=== PATIENT | female | born 2000 | race Caucasian/White ===

== ENCOUNTER 2020-11-13 09:44 | Emergency (ER) | payer OTHER, SELFPAY ==
--- NOTE | ~2020-11-13 | CT_ITS ---
EXAMINATION: CTA brain carotid DATE: 11/13/2020 12:00 INDICATION: Headache and dizziness. TECHNIQUE: Computed tomographic angiography (CTA) of the head was performed without and with 100 mL O mnipaque-350 intravenous contrast. CTA of the neck was performed with intravenous contrast. Automated exposure control and iterative reconstruction technique were employed. The dose-length product was 1 672.79 mGy-cm. Maximum intensity projection and volume rendered 3D-reconstructions were created by carola hall technologist on a separate workstation. COMPARISON: None. FINDINGS: HEAD CTA: There is no intracranial hemorrhage, acute infarction, or abnormal intracranial mass lesion . The ventricles are normal in size. There is mild mucosal thickening in sphenoid sinus. The mastoid air cells are normal. The orbits are normal. The vertebral arteries are codominant. There is no signi ficant stenosis of basilar artery or the posterior cerebral arteries. There is no significant stenosi s of the intracranial internal carotid arteries or anterior or middle cerebral arteries. Anterior com municating artery is normal. The posterior communicating arteries are normal. There is no aneurysm. NECK CTA: There are no pathologically enlarged lymph nodes. There is no significant stenosis of the v ertebral arteries. There is no visible plaque in the internal carotid arteries. There is 0% stenosis of the proximal right internal carotid artery relative to normal distal artery lumen diameter (NASCET criteria). There is 0% stenosis of the proximal left internal carotid artery relative to normal dist al artery lumen diameter. There is mild cervical spondylosis. IMPRESSION: 1. Normal brain. No aneurysm or significant intracranial arterial stenosis. 2. 0% stenosis of the proximal internal carotid arteries relative to normal distal artery lumen diame ters (NASCET criteria). Reviewed, dictated and finalized at location A. ATION CLERK IMPRESSION: 1. Normal brain. No aneurysm or significant intracranial arterial stenosis. 2. 0% stenosis of the proximal internal carotid arteries relative to normal dis buster artery lumen diameters (NASCET criteria).
--- NOTE | ~2020-11-13 | XR_ITS ---
XR chest 1V portable 11/13/2020 13:35 Indication: Chest pain. Headache. Body aches. Procedure: AP portable chest Comparison: No prior studies for comparison. Findings: Heart size normal. No focal air space disease, pulmonary edema, pleural effusion or suspect ed pneumothorax. No acute osseous abnormality. Impression: 1: No acute cardiopulmonary disease. Reviewed, dictated and finalized at location A. S PRESSER Impression: 1: No acute cardiopulmonary disease.
[2020-11-13 10:05] VITALS: BP 127/82; PULSE 99; RESP 20; TEMP 36.9; O2SAT 100
[2020-11-13 11:03] LABS: Basophils Absolute Auto 0.1 K/mm3 (0.0-0.1); Basophils Percent Auto 0.5 % (0.2-1.2); Eosinophils Absolute Auto 0.3 K/mm3 (0-0.3); Hematocrit 39.4 % (37.0-47.0); Hemoglobin 12.9 g/dL (12.0-15.0); Immature Granulocyte Absolute 0.09 K/mm3 (0.00-0.031); Immature Granulocyte Percent A 0.7 % (0-0.5); Lymphocytes Percent Auto 23.2 % (18.3-44.2); Mean Corpuscular HGB Conc 32.7 g/dl (32-36); Mean Corpuscular Hemoglobin 26.9 pg (26-34); Mean Corpuscular Volume 82.3 fl (80-100); Monocytes Absolute Auto 0.8 K/mm3 (0.1-0.6); Neutrophils Absolute Auto 8.7 K/mm3 (1.3-6.7); Neutrophils Percent Auto 67.6 % (45.5-73.1); Platelet Count Result 330 k/mm3 (150-375); Red Blood Count 4.79 M/mm3 (4.2-5.4); Red Cell Distribution Width 13.7 % (11.5-14.5); White Blood Count 12.9 K/mm3 (4.5-10.0)
[2020-11-13 11:04] LABS: Add Urine Microscopic? NO; Appearance Urine Clear (Clear); Bilirubin Urine Negative (Negative); Blood Urine Negative (Negative); Color Urine Yellow (Yellow); Glucose Urine UA Negative (Negative); Ketones Urine Negative (Negative); Leukocyte Esterase Ur Negative LEU/UL (Negative); Nitrate Urine Negative (Negative); Protein Urine Negative (Negative); Specific Grav Ur 1.015 (1.001-1.035); Urobilinogen Urine Negative mg/dL (<2.0)
[2020-11-13 11:20] LABS: Alanine Aminotransferase 16 U/L (4-35); Albumin Level 3.7 g/dL (3.5-5.1); Alkaline Phosphatase 58 U/L (38-126); Anion Gap 6 mmol/L (8-16); Aspartate Amino Transferase 16 U/L (14-36); Bilirubin,Total 0.9 mg/dL (0.2-1.3); Blood Urea Nitrogen 11 mg/dL (7-17); CRP 1.1 mg/dL (<1.0); Calcium 8.3 mg/dL (8.4-10.2); Carbon Dioxide 27 mmol/L (22-30); Chloride 102 mmol/L (98-107); Estimated CRCL calculation 114 ml/min; Estimated Glomerular Filt Rate > 60; Glucose 93 mg/dL (65-105); Potassium 3.9 mmol/L (3.4-5.0); Sodium 135 mmol/L (137-145)
[2020-11-13] MEDS: SODIUM CHLORIDE 0.9% IV 1,000 ML 999 ML IV CONT (11:30)
[2020-11-13] MEDS: FAMOTIDINE 20 MG/2 ML VIAL IV PUSH (11:32)
[2020-11-13 11:57] VITALS: BP 126/66; PULSE 85; RESP 18; O2SAT 100
[2020-11-13 12:32] LABS: Erythrocyte Sedimentation Rate 52 mm/hr (0-20)
[2020-11-13 12:36] LABS: Free T4 Free Thyroxine Reflex 1.07 ng/dL (0.78-2.19)
--- NOTE | 2020-11-13 13:26 | ED.URI ---
HPI - URI/Sore Throat General Chief Complaint: Upper Respiratory Infection Stated Complaint: body aches, MERCER Time Seen by Provider: 11/13/20 09:47 Source: patient Mode of arrival: ambulatory Limitations: no limitations History of Present Illness HPI Narrative: Patient a 20-year-old female who presents with generalized body aches and fatigue for the last 2 days does note some sinus congestion denies other URI symptoms notes that she has already had Covid but does work in a healthcare facility patient denies vomiting diarrhea urinary or vaginal complaints presents in no distress has not taken anything for her symptoms denies known direct sick contacts Related Data Home Medications Medication Instructions Recorded Confirmed levothyroxine 11/13/20 Allergies Allergy/AdvReac Type Severity Reaction Status Date / Time cephalexin [From Keflex] Allergy Difficulty Verified 11/13/20 10:07 Breathing Review of Systems Review of Systems: All systems reviewed & are unremarkable except as noted in HPI and below PMFSH Past Medical History Medical History (Updated 11/13/20 @ 13:38 by Ludwin Triana PA-C) Hypothyroidism Surgical History Surgical History (Updated 11/13/20 @ 13:27 by Ludwin Triana PA-C) H/O thyroidectomy Social History Social History (Updated 11/13/20 @ 13:27 by Ludwin Triana PA-C) Smoking status: Never smoker Exam Narrative: Exam Narrative: GENERAL: Well-appearing, well-nourished, and in no acute distress. HEAD: Normocephalic, atraumatic. EYES: PERRLA and EOMI. ENT: Nares clear, no rhinorrhea or epistaxis. Mucous membranes moist. Oropharynx without tonsillar hypertrophy exudate or other lesions. Bilateral TMs pearly pascual nonbulging NECK: Supple. No adenopathy or masses. CHEST: Clear to auscultation. No respiratory distress. No wheezes rales or rhonchi HEART: Regular rate and rhythm. No murmur heard. Normal peripheral pulses. ABDOMEN: Soft, mild tenderness in the lower quadrants of the abdomen no rebound or guarding, nondistended EXTREMITIES: Normal range of motion. No edema. SKIN: Warm, dry, no rash. NEURO: No focal deficits. Alert and oriented x3. Cranial nerves II through XII grossly intact PSYCH: Normal mood and affect. Course Course Emergency Course: Patient evaluated in the emergency department no high risk changes in the blood work or imaging will be discharged home for further evaluation by her primary care discussion was made with primary care patient agrees with this plan will be sent home to rest and hydrate with plan follow-up for further evaluation by primary care Consultations Consultation #1: Discussed case with primary care who would like patient to be swabbed for Covid and to follow by phone for results and further evaluation spoke with Dr. De La Rosa Date: 11/13/20 Time: 13:36 Vital Signs Vital signs: Vital Signs Temperature 98.5 F 11/13/20 10:05 Pulse Rate 99 11/13/20 10:05 Respiratory Rate 20 11/13/20 10:05 Blood Pressure 127/82 11/13/20 10:05 Pulse Oximetry 100 11/13/20 10:05 Temperature 98.5 F 11/13/20 10:05 Pulse Rate 85 11/13/20 11:57 Respiratory Rate 18 11/13/20 11:57 Blood Pressure 126/66 11/13/20 11:57 Pulse Oximetry 100 11/13/20 11:57 MDM - URI/Sore Throat MDM Narrative Medical decision making narrative: Patient in the room made aware of case findings treatment plan diagnosis will be discharged home with plan follow-up with primary care no high risk changes in the blood work or imaging afebrile nontoxic-appearing. Lab Data Result diagrams: 11/13/20 10:55 11/13/20 10:55 Labs: Lab Results 11/13/20 11/13/20 11/13/20 Range/Units 10:55 10:55 10:55 WBC 12.9 H (4.5-10.0) K/mm3 RBC 4.79 (4.2-5.4) M/mm3 Hgb 12.9 (12.0-15.0) g/dL Hct 39.4 (37.0-47.0) % MCV 82.3 (80-100) fl MCH 26.9 (26-34) pg MCHC 32.7 (32-36) g/dl RDW 13.7 (11.5-14.5) % P
[2020-11-13 13:57] VITALS: BP 115/66; PULSE 69; RESP 18; O2SAT 100
[2020-11-13 14:32] LABS: Total Triiodothyronine (T3) 1.03 NG/ML (0.97-1.69)
[2020-11-13 23:32] LABS: SARS-CoV-2 RNA PCR Negative
== END 2020-11-13 13:59 | disposition home or self-care (01) ==
PROVIDERS: Emergency Medicine Emergency Medical Services; Emergency Provider Emergency Medicine; PCP Internal Medicine
DX: R52 Pain, unspecified (principal); Z20.822 Contact with and (suspected) exposure to COVID-19; E89.0 Postprocedural hypothyroidism
CPT/HCPCS: 36415; 70496; 70498; 71045; 80053; 81003; 81025; 84439; 84443; 84480; 85025; 85652; 86140; 87804; 96365; 96375; 99284; C9803; J0131; J7030; Q9967; U0003

== ENCOUNTER 2021-05-19 15:06 | Outpatient (CLI) | payer OTHER, SELFPAY ==
--- NOTE | ~2021-05-19 | XR_ITS ---
XR foot RT min 3V DATE: 05/19/2021 15:28 INDICATION: Right foot pain TECHNIQUE: 4 views COMPARISON: None FINDINGS: No fracture or dislocation, periosteal reaction or bone destruction. Joint spaces are relat ively preserved. No erosive change. IMPRESSION: Negative Reviewed, dictated and finalized at location B. IMPRESSION: Negative
== END 2021-05-19 15:07 ==
PROVIDERS: PCP Internal Medicine; Visit Provider Internal Medicine
DX: M79.673 Pain in unspecified foot (principal)
CPT/HCPCS: 73630

== ENCOUNTER 2021-07-27 13:24 | Outpatient (CLI) | payer OTHER, SELFPAY ==
--- NOTE | ~2021-07-27 | XR_ITS ---
EXAMINATION: XR chest 2V 07/27/2021 13:57 INDICATION: Shortness of breath PROCEDURE: 2 view chest COMPARISON: 11/13/2020 FINDINGS: The lungs are clear. The cardiomediastinal silhouette is within normal limits. There are no pleural effusions. There is no pneumothorax suspected. IMPRESSION: 1: NO ACUTE CARDIOPULMONARY DISEASE. Reviewed, dictated and finalized at location A.
== END 2021-07-27 13:25 ==
PROVIDERS: PCP Internal Medicine; Visit Provider Internal Medicine
DX: R06.02 Shortness of breath (principal)
CPT/HCPCS: 71046

== ENCOUNTER 2021-07-28 08:58 | Outpatient (CLI) | payer OTHER, SELFPAY ==
--- NOTE | ~2021-07-28 | US_ITS ---
EXAMINATION: US right upper quadrant EXAM DATE: 07/28/2021 09:37 INDICATION: Abdominal pain, symptoms a week. TECHNIQUE: Multiple grayscale and Doppler images of the abdomen right upper quadrant were obtained (b y a technologist who performed the scan) and subsequently reviewed. There is no prior study for [place]. FINDINGS: The pancreatic head and body are normal in appearance. The pancreatic tail is not visualized. The l iver has normal echogenicity and contour. There are no focal liver lesions identified. There is no evidence of intrahepatic biliary duct dilation. Portal venous flow was seen in the hepatopedal, nor mal direction and has normal Doppler waveform. No right-sided hydronephrosis. Common bile duct measures 4-5 mm, which is normal. The gallbladder wall is normal in thickness, with expected amount of distention. No sonographic evidence of pericholecystic fluid. There is no cholel ithiases. Technologist performing exam reports patient did not demonstrate sonographic Maldonado's sign. Please note that this sign is less reliable in patients who have received pain medication. IMPRESSION: 1. Unremarkable abdominal ultrasound exam. Reviewed, dictated and finalized at location B.
== END 2021-07-28 08:59 | disposition home or self-care (01) ==
LOC: ANHIMG 09:04
PROVIDERS: PCP Internal Medicine; Visit Provider Internal Medicine
DX: R10.11 Right upper quadrant pain (principal)
CPT/HCPCS: 76705